=== PATIENT | male | born 2000 | race Caucasian/White ===

== ENCOUNTER 2020-01-31 22:06 | Emergency (ER) | payer BC, OTHER ==
[~2020-01-31] VITALS: Ht 167 cm; Wt 85.0 kg
[~2020-01-31 22:06] MED LIST: ADHD MED; AGM875T PO; AURODEX10M EACH EAR; CONCERTA; ONDA-42 SL; TRM50T PO
--- NOTE | 2020-01-31 23:32 | ED Cough/URI ---
General Chief Complaint: Cough/Cold/Flu Symptoms Stated Complaint: COUGH/FATIGUE/CHEST CONGESTION Nursing Triage Note: TO ED VIA POV AND AMBULATORY TO ROOM 6 WITH C/O COUGH SINCE SUNDAY, PAIN WITH INHALATION, EXHALATION, AND WHILE COUGHING AND HEADACHE. PT HAS NOT TAKING ANY OTC PAIN OR COUGH MEDICATION. DENIES SORE THROAT OR FEVER. PT DENIES ANY RECENT TRAVEL, DENIES CONTACT WITH COVID-19 SUSPECTED OR POSTIVE PERSON. Source: patient Exam Limitations: no limitations History of Present Illness Date Seen by Provider: Jan 31, 2020 Time Seen by Provider: 23:15 Initial Comments The patient presents to the ER by private conveyance with his mother and chief complaint that for about for 5 days he's had occasional cough, pleuritic chest pain on deep inspiration or coughing and runny nose. He's had no fevers or chills. He's had general malaise fatigue. He's had no known sick contacts with anybody with COVID-19. He does not have any medical problems take any medicines or follow with a primary care doctor. His mother was concerned about his symptoms given the current state of affairs and insisted he come to the ER to be checked out. Patient has no history of asthma. He does not smoke cigarettes or use any recreational drugs. He's had no travel outside of [place] for the past 2 weeks. 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 Allergies and Home Medications Allergies Coded Allergies: No Known Drug Allergies (Unverified , 12/20/13) Home Medications Tramadol HCl 50 Mg Tablet, 50 MG PO Q4H PRN for PAIN Prescribed by: GRACIELA JOHNSON on 05/25/16 0634 Patient Home Medication List Home Medication List Reviewed: Yes Review of Systems Review of Systems Constitutional: No chills, No fever; malaise, weakness EENTM: No ear discharge, No ear pain Respiratory: cough; No hemoptysis, No orthopnea, No phlegm, No short of breath, No wheezing Cardiovascular: see HPI, chest pain; No edema, No Hx of Intervention, No palpitations Gastrointestinal: No abdominal pain, No nausea Genitourinary: No discharge, No dysuria Musculoskeletal: No joint pain, No joint swelling Skin: No dryness, No pruritus, No rash All Other Systems Reviewed Negative Unless Noted: Yes Past Oxeadzw-Fzpnzo-Nicvar Hx Patient Social History Alcohol Use: Denies Use Recreational Drug Use: No Smoking Status: Never a Smoker 2nd Hand Smoke Exposure: Yes Recent Foreign Travel: No Contact w/Someone Who Travel: No Recent Infectious Disease Expo: No Recent Hopitalizations: No Ebola Symptoms: Denies Symptoms Listed Immunizations Up To Date Tetanus Booster (TDap): Less than 5yrs PED Vaccines UTD: Yes Date of Pneumonia Vaccine: Sep 07, 2014 Date of Influenza Vaccine: Sep 07, 2014 Seasonal Allergies Seasonal Allergies: No Past Medical History Surgeries: Yes (BMT'S) Adenoidectomy, Ear Surgery, Tonsillectomy Respiratory: No Cardiac: No Neurological: No Genitourinary: No Gastrointestinal: No Musculoskeletal: No Endocrine: No HEENT: Yes Chronic Ear Infection, Tonsilitis Cancer: No Psychosocial: Yes ADD/ADHD Integumentary: No Blood Disorders: No Family Medical History No Pertinent Family Hx Physical Exam Vital Signs - First Documented Capillary Refill : Height: 5'2" Weight: 128lbs. oz. 58.843319ip; 30.00 BMI Method:Actual General Appearance: WD/WN, no apparent distress Eyes: Bilateral Eye Normal Inspection, Bilateral Eye PERRL, Bilateral Eye EOMI HEENT: PERRL/EOMI, normal ENT inspection, TMs normal; No pharynx normal; pharyngeal erythema (mild injection and retropharynx); No tonsillar exudate (negative for tonsillar edema) Neck: non-tender, full range of motion, supple, normal inspection Respiratory: chest non-tender, lungs clear, normal breath sounds, no respiratory distress, no accessory muscle use, other (chest pain reproduced by deep inspiration. Occasional dry cough) Cardiovascular: normal peripheral pulses, regular rate, rhythm Gastrointestinal: normal bowel sounds, non tender, soft Extremities: normal range of motion, non-tender, normal capillary refill Neurologic/Psychiatric: alert, normal mood/affect, oriented x 3 Skin: normal color, warm/dry Progress/Results/Core Measures Suspected Sepsis SIRS Temperature: Pulse: Respiratory Rate: Blood Pressure / Mean: Results/Orders Micro Results Microbiology 01/31/20 Influenza Types A,B Antigen (ILA) - Final, Complete My Orders Orders - LANI GONZALEZ Influenza A And B Antigens (01/31/20 22:40) Vital Signs/I&O 01/31/20 01/31/20 22:33 22:33 Temp 36.7 Pulse 88 Resp 18 B/P (MAP) 150/96 O2 Delivery Room Air Room Air Capillary Refill : Progress Note : Time: 23:27 Progress Note Afebrile aseptic without respiratory distress. He has a cold. We have educated him on appropriate quarantine and return precautions. We'll give him a handout on COVID-19 help educate him and family. Departure Impression Primary Impression: Viral upper respiratory tract infection with cough Additional Impression: Pleurisy Disposition: 01 HOME, SELF-CARE Condition: Stable Departure-Patient Inst. Decision time for Depature: 23:28 Referrals: [facility] (PCP/Family) Primary Care Physician Patient Instructions: COVID19, Viral Upper Respiratory Infection, Adult (DC) Add. Discharge Instructions: I suspect your symptoms are caused by a virus. This is One of thousand's of viruses that we do not have a cure for. The appropriate thing for you to do is self quarantine at home. You need to drink lots of fluids and take appropriate uqpo-neg-zyhrkru medicines for congestion such as phenylephrine, Sudafed, chlorpheniramine or if you have a thick cough with mucus then you can use Mucinex and drink more fluids as well as humidifiers and vapor rubs such as Vicks or Mentholatum. If you have body aches or fever then you should use Tylenol 1000 mg every 8 hours as necessary. You may also use ibuprofen or naproxen. For your chest pain on deep breathing this is known as pleurisy and would best be treated with naproxen 2 capsules twice a day or ibuprofen 800 mg 3 times a day. Humidifiers can also be helpful for this. If you're having difficulty breathing or you cannot keep fluid in fast enough and you feel you are becoming dehydrated then you need to return to the emergency room. Otherwise your symptoms should run their course in about 7-10 days. If it persists beyond that you can follow-up with your primary care doctor as necessary. I have attached a handout talking about COVID - 19 and current recommendations for you to review. At this time however because of limited testing supplies and ability to treat Covid-19 we do not routinely test anyone who does not require emergent hospitalization or meet strict criteria. Your influenza swab was negative. When you are fever free for 72 hours then you may return to work. Make sure you're using handwashing and hand locomotive engineer's. Avoid touching your face. Clean your house top to bottom and use hand locomotive engineer's. Tessalon Perles 1 capsule every 6 hours as needed for coughing. Ondansetron one tablet every 6 hours as needed if you develop nausea and/or vomiting. All discharge instructions reviewed with patient and/or family. Voiced understanding. Scripts Ondansetron (Ondansetron Odt) 4 Mg Tab.rapdis 4 MG PO Q6H PRN for NAUSEA/VOMITING, #8 TAB 0 Refills Prov: LANI GONZALEZ 01/31/20 Benzonatate (TESSALON PERLES) 100 Mg Capsule 100 MG PO Q6H PRN for COUGH, #30 CAP 0 Refills Prov: LANI GONZALEZ 01/31/20 Work/School Note: Work Release Form Date Seen in the Emergency Department: Jan 31, 2020 Return to Work: Feb 03, 2020 Restrictions: Return-No Fever (24hrs) LANI GONZALEZ Jan 31, 2020 23:32
[2020-01-31] MEDS ORDERED: BENZ100C18 PO (23:33)
[2020-01-31] MEDS ORDERED: ONDA4TAB11 PO (23:33)
== END 2020-01-31 23:42 | disposition home or self-care (01) ==
LOC: EDUNIT# 22:06 → ER 22:09
DX: J06.9 Acute upper respiratory infection, unspecified (principal); R09.1 Pleurisy
CPT/HCPCS: 87804